=== PATIENT | female | born 1970 | race Caucasian/White ===

== ENCOUNTER 2017-12-31 19:15 | Emergency (ER) | payer BC, OTHER ==
[~2017-12-31] VITALS: Ht 165.1 cm; Wt 83.1 kg
[~2017-12-31 19:15] MED LIST: ACET-1256 PO; CITA20TA9 PO; CNC/54 PO; IBUP-103 PO; PENI-82 PO; PRLSR20 PO
[2017-12-31 19:17] VITALS: TEMP 36.7; Ht 165.1 cm; Wt 83.1 kg
[2017-12-31] MEDS ORDERED: LAMO100T16 PO (20:19)
[2017-12-31] MEDS ORDERED: ATOR10TA82 PO (20:19)
[2017-12-31] MEDS ORDERED: NITR-5 PO (20:19)
[2017-12-31 21:13] LABS: BASO % 0.3 %; BASO ABS # 0.02 K/uL (0-0.2); EOS ABS # 0.13 K/uL (0-0.5); HEMOGLOBIN 11.7 g/dL (12.0-16.0); IG# 0.01 K/uL (0.00-0.02); LYMPH % 33.1 %; LYMPH ABS # 2.18 K/uL (1.2-3.4); MEAN CELL VOLUME 78.9 fL (80-100); MEAN CORPUSCULAR HEMOGLOBIN 24.9 pg (25-34); MEAN CORPUSCULAR HGB CONC 31.6 g/dl (32-36); MEAN PLATELET VOLUME 9.4 fL (7.4-10.4); MONO % 5.5 %; MONO ABS # 0.36 K/uL (0.11-0.59); NEUT % 58.9 %; NEUT ABS # 3.88 K/uL (1.4-6.5); PLATELET COUNT 334 K/uL (130-400); RED CELL DISTRIBUTION WIDTH CV 14.9 % (11.5-14.5); RED CELL DISTRIBUTION WIDTH SD 42.8 fL (36.4-46.3); WHITE BLOOD COUNT 6.58 K/uL (4.8-10.8)
[2017-12-31 21:29] LABS: ALBUMIN 4.1 gm/dl (3.4-5.0); CALCIUM 8.9 mg/dl (8.5-10.1); CREATININE 0.77 mg/dl (0.60-1.20); POTASSIUM 3.3 mmol/L (3.5-5.1)
[2017-12-31 21:31] LABS: TOTAL PROTEIN 7.9 gm/dl (6.4-8.2)
--- NOTE | 2017-12-31 21:57 | DIAGNOSTIC IMAGING REPORT ---
ULTRASOUND OF THE PELVIS CLINICAL HISTORY: Pelvic pain. COMPARISON STUDY: No priors. TECHNIQUE: Real-time, grayscale, and color flow sonography of the pelvis is performed both transabdominally and endovaginally. Images are reviewed in the transverse and longitudinal planes. FINDINGS: Uterus: The uterus is normal in size and echotexture, measuring 1.0 x 4.5 x 6.7 cm. Small intramural fibroids measure up to 2.1 cm. A nabothian cyst is incidentally noted in the cervix. Endometrium: The endometrium is normal in appearance, and the endometrial stripe is normal in thickness measuring up to 0.4 cm. An intrauterine device is in place. Ovaries: The ovaries are normal in size and morphology. The right ovary measures 3.1 x 1.7 x 2.3 cm and the left ovary measures 3.1 x 1.9 x 1.9 cm. There are small bilateral ovarian follicles. A minimally complex follicle in the right ovary measures up to 1.1 cm. Normal Doppler waveforms are shown within both ovaries. Pelvis: There is trace free fluid in the cul-de-sac. No concerning adnexal lesion is seen. IMPRESSION: 1. No acute sonographic abnormality is identified in the pelvis. 2. An intrauterine device is in place. 3. Small uterine fibroids are noted. 4. Trace free fluid in the cul-de-sac is nonspecific and likely physiologic. Electronically signed by: Stew Verduzco M.D. 12/31/2017 9:55 PM Dictated Date/Time: 12/31/2017 9:53 PM
--- NOTE | 2017-12-31 22:50 | DIAGNOSTIC IMAGING REPORT ---
ULTRASOUND KIDNEYS AND BLADDER CLINICAL HISTORY: Pelvic pain. Recent urinary tract infection. COMPARISON STUDY: No priors. TECHNIQUE: Real-time, grayscale, and color flow sonography of the kidneys and bladder is performed. Images are reviewed in the transverse and longitudinal planes. FINDINGS: Kidneys: The kidneys are normal in size and echotexture. The right kidney measures 11.6 x 4.5 x 5.7 cm and the left kidney measures 12.1 x 4.8 x 5.3 cm. There is no hydronephrosis. No shadowing renal calculi are identified. There is no sonographic evidence of contour deforming renal mass lesion. No perinephric fluid is identified. Bladder: The bladder is largely decompressed and grossly normal in appearance. Only the right ureteral jet was seen. IMPRESSION: Unremarkable sonographic assessment of the kidneys and bladder. Electronically signed by: Stew Verduzco M.D. 12/31/2017 10:49 PM Dictated Date/Time: 12/31/2017 9:56 PM
[2017-12-31] MEDS ORDERED: CEFTRIAXONE SOD INJ 1 GM ADDVIAL IV STA (23:03)
--- NOTE | 2017-12-31 23:23 | EMERGENCY ROOM VISIT NOTE ---
History Report prepared by Mena: Karen Rodriguez Under the Supervision of: Dr. Jacqui May D.O. First contact with patient: 19:21 Chief Complaint: PELVIC PAIN Stated Complaint: URINARY TRACT PAIN History of Present Illness The patient is a 47 year old female who presents to the Emergency Room with complaints of persistent pelvic pain starting over 1 week ago. The pain is worse on the left. She describes the pain as sharp. The pain started several days after her period ended which she felt was unusual. 4 days ago, she started feeling pressure and pain with urination. She went to [employer] and had a urine dip which found that she had a UTI. She was started on Macrobid and Pyridium. She got a call today saying that the urine culture was negative. She called her PCP because she was concerned that she was still having urinary symptoms. She is constantly feeling as though she needs to urinate. She feels a little bloated. She thinks that she might have had a fever 3 days ago because she woke up chilled and diaphoretic. She has had some nausea which she attributes to the medications. She denies any back pain, change in bowel movement, or pain with intercourse. No recent change in her menstrual cycles were periods that are heavier than usual. No bleeding between cycles, no abnormal vaginal discharge. She is not prone to UTI. She has a prolapsed uterus. She had an ultrasound several years ago after she had pain around her left ovary which did not reveal any major problems. Source of History: patient Onset: over 1 week ago Position: pelvis Quality: sharp Timing: other (persistent) Associated Symptoms: + fevers (resolved), + chills (resolved), + diaphoresis (resolved), + nausea, + abdominal pain, + urinary symptoms, No back pain Review of Systems See HPI for pertinent positives & negatives. A total of 10 systems reviewed and were otherwise negative. Past Medical & Surgical Surgical Problems: (1) Perforation of root canal space Family History Diabetes mellitus FHx: cancer Heart disease Hypertension Social History Smoking Status: Former Smoker Alcohol Use: occasionally Drug Use: none Marital Status: Housing Status: lives with family Occupation Status: employed Current/Historical Medications Scheduled Atorvastatin (Lipitor), 10 MG PO DAILY Cephalexin (Keflex), 1 CAP PO BID Citalopram Hydrobromide (Celexa), 20 MG PO QAM Lamotrigine (Lamictal), 50 MG PO HS Methylphenidate Hcl (Concerta), 54 MG PO DAILY Nitrofurantoin Monohyd Macrocr (Macrobid), 100 MG PO BID Omeprazole (Prilosec), 20 MG PO BID Allergies Coded Allergies: Sulfa Drugs (Verified Allergy, Intermediate, 03/20/16) Physical Exam Vital Signs Date Time Temp Pulse Resp B/P (MAP) Pulse Ox O2 Delivery O2 Flow Rate FiO2 01/01/18 00:02 76 18 124/71 98 12/31/17 22:05 66 16 119/69 95 Room Air 12/31/17 20:40 72 18 136/47 97 Room Air 12/31/17 19:17 36.7 87 16 133/76 96 Room Air Physical Exam GENERAL: alert, well appearing, well nourished, no distress, non-toxic EYE EXAM: normal conjunctiva, PERRL and EOM's grossly intact OROPHARYNX: no exudate, no erythema, lips, buccal mucosa, and tongue normal and mucous membranes are moist NECK: supple, no nuchal rigidity, no adenopathy, non-tender LUNGS: Clear to auscultation. Normal chest wall mechanics HEART: no murmurs, S1 normal and S2 normal ABDOMEN: abdomen soft, mild tenderness in the suprapubic and bilateral lower quadrants, normo-active bowel sounds, no masses, no rebound or guarding. BACK: Back is symmetrical on inspection and there is no deformity, no midline tenderness, no CVA tenderness. SKIN: no rashes and no bruising UPPER EXTREMITIES: upper extremities are grossly normal. LOWER EXTREMITIES: No pitting edema. NEURO EXAM: Normal sensorium, cranial nerves II-XII grossly intact, normal speech, no gross weakness of arms, no gross weakness of legs. Medical Decision & Procedures ER Provider Diagnostic Interpretation: Radiology results have been interpreted by the radiologist and reviewed by me. ULTRASOUND KIDNEYS AND BLADDER CLINICAL HISTORY: Pelvic pain. Recent urinary tract infection. COMPARISON STUDY: No priors. TECHNIQUE: Real-time, grayscale, and color flow sonography of the kidneys and bladder is performed. Images are reviewed in the transverse and longitudinal planes. FINDINGS: Kidneys: The kidneys are normal in size and echotexture. The right kidney measures 11.6 x 4.5 x 5.7 cm and the left kidney measures 12.1 x 4.8 x 5.3 cm. There is no hydronephrosis. No shadowing renal calculi are identified. There is no sonographic evidence of contour deforming renal mass lesion. No perinephric fluid is identified. Bladder: The bladder is largely decompressed and grossly normal in appearance. Only the right ureteral jet was seen. IMPRESSION: Unremarkable sonographic assessment of the kidneys and bladder. Electronically signed by: Stew Verduzco M.D. 12/31/2017 10:49 PM Dictated Date/Time: 12/31/2017 9:56 PM ULTRASOUND OF THE PELVIS CLINICAL HISTORY: Pelvic pain. COMPARISON STUDY: No priors. TECHNIQUE: Real-time, grayscale, and color flow sonography of the pelvis is performed both transabdominally and endovaginally. Images are reviewed in the transverse and longitudinal planes. FINDINGS: Uterus: The uterus is normal in size and echotexture, measuring 1.0 x 4.5 x 6.7 cm. Small intramural fibroids measure up to 2.1 cm. A nabothian cyst is incidentally noted in the cervix. Endometrium: The endometrium is normal in appearance, and the endometrial stripe is normal in thickness measuring up to 0.4 cm. An intrauterine device is in place. Ovaries: The ovaries are normal in size and morphology. The right ovary measures 3.1 x 1.7 x 2.3 cm and the left ovary measures 3.1 x 1.9 x 1.9 cm. There are small bilateral ovarian follicles. A minimally complex follicle in the right ovary measures up to 1.1 cm. Normal Doppler waveforms are shown within both ovaries. Pelvis: There is trace free fluid in the cul-de-sac. No concerning adnexal lesion is seen. IMPRESSION: 1. No acute sonographic abnormality is identified in the pelvis. 2. An intrauterine device is in place. 3. Small uterine fibroids are noted. 4. Trace free fluid in the cul-de-sac is nonspecific and likely physiologic. Electronically signed by: Stew Verduzco M.D. 12/31/2017 9:55 PM Dictated Date/Time: 12/31/2017 9:53 PM Laboratory Results 12/31/17 20:30 Red Blood Count 4.69, Mean Corpuscular Volume 78.9, Mean Corpuscular Hemoglobin 24.9, Mean Corpuscular Hemoglobin Concent 31.6, Mean Platelet Volume 9.4, Neutrophils (%) (Auto) 58.9, Lymphocytes (%) (Auto) 33.1, Monocytes (%) (Auto) 5.5, Eosinophils (%) (Auto) 2.0, Basophils (%) (Auto) 0.3, Neutrophils # (Auto) 3.88, Lymphocytes # (Auto) 2.18, Monocytes # (Auto) 0.36, Eosinophils # (Auto) 0.13, Basophils # (Auto) 0.02 12/31/17 20:30 Test 12/31/17 20:30 12/31/17 20:38 White Blood Count 6.58 K/uL (4.8-10.8) Red Blood Count 4.69 M/uL (4.2-5.4) Hemoglobin 11.7 g/dL (12.0-16.0) Hematocrit 37.0 % (37-47) Mean Corpuscular Volume 78.9 fL (80-100) Mean Corpuscular Hemoglobin 24.9 pg (25-34) Mean Corpuscular Hemoglobin Concent 31.6 g/dl (32-36) Platelet Count 334 K/uL (130-400) Mean Platelet Volume 9.4 fL (7.4-10.4) Neutrophils (%) (Auto) 58.9 % Lymphocytes (%) (Auto) 33.1 % Monocytes (%) (Auto) 5.5 % Eosinophils (%) (Auto) 2.0 % Basophils (%) (Auto) 0.3 % Neutrophils # (Auto) 3.88 K/uL (1.4-6.5) Lymphocytes # (Auto) 2.18 K/uL (1.2-3.4) Monocytes # (Auto) 0.36 K/uL (0.11-0.59) Eosinophils # (Auto) 0.13 K/uL (0-0.5) Basophils # (Auto) 0.02 K/uL (0-0.2) RDW Standard Deviation 42.8 fL (36.4-46.3) RDW Coefficient of Variation 14.9 % (11.5-14.5) Immature Granulocyte % (Auto) 0.2 % Immature Granulocyte # (Auto) 0.01 K/uL (0.00-0.02) Anion Gap 4.0 mmol/L (3-11) Est Creatinine Clear Calc Drug Dose 95.1 ml/min Estimated GFR () 105.8 Estimated GFR (Non- 91.3 BUN/Creatinine Ratio 13.3 (10-20) Calcium Level 8.9 mg/dl (8.5-10.1) Total Bilirubin 0.2 mg/dl (0.2-1) Aspartate Amino Transf (AST/SGOT) 22 U/L (15-37) Alanine Aminotransferase (ALT/SGPT) 30 U/L (12-78) Alkaline Phosphatase 67 U/L (45-117) Total Protein 7.9 gm/dl (6.4-8.2) Albumin 4.1 gm/dl (3.4-5.0) Globulin 3.8 gm/dl (2.5-4.0) Albumin/Globulin Ratio 1.1 (0.9-2) Lipase 230 U/L (73-393) Human Chorionic Gonadotropin, Qual NEG (NEG) Urine Color YELLOW Urine Appearance CLEAR (CLEAR) Urine pH 5.5 (4.5-7.5) Urine Specific [place] 1.015 (1.000-1.030) Urine Protein NEG (NEG) Urine Glucose (UA) NEG (NEG) Urine Ketones NEG (NEG) Urine Occult Blood 1+ (NEG) Urine Nitrite NEG (NEG) Urine Bilirubin NEG (NEG) Urine Urobilinogen NEG (NEG) Urine Leukocyte Esterase TRACE (NEG) Urine WBC (Auto) 1-5 /hpf (0-5) Urine RBC (Auto) 0-4 /hpf (0-4) Urine Hyaline Casts (Auto) 1-5 /lpf (0-5) Urine Epithelial Cells (Auto) 20-30 /lpf (0-5) Urine Bacteria (Auto) NEG (NEG) Laboratory results per my review. Medications Administered Medications (Trade) Dose Ordered Sig/Blossom Route Start Time Stop Time Status Last Admin Dose Admin Ceftriaxone Sodium (Rocephin Inj) 1 gm NOW STAT IV 12/31/17 23:03 12/31/17 23:04 DC 12/31/17 23:03 1 GM ED Course 1921: The patient was evaluated in room B6. A complete history and physical exam was performed. 2302: Rocephin Inj 1 gm IV. 2251: Upon reevaluation, the patient is feeling better. I discussed the findings and the treatment plan with the patient. She verbalizes agreement and understanding. She was discharged home. Medical Decision Differential diagnoses includes but is not limited to appendicitis, diverticulitis, small bowel obstruction, malignancy, hernia, urinary tract infection, torsion, and ectopic , perforation, trauma, infectious. Patient well-appearing here throughout. No GI symptoms to strongly suggest other acute GI pathology such as colitis or diverticulitis. Discussed with patient following reassuring ultrasounds labs, and urine regarding possible GI etiology and discussed performing CAT scan. Using shared medical decision making, patient opted to decline CAT scan at this time and follow-up as an outpatient. Given patient's persistent urinary symptoms and continued blood and leukocytes noted on UA today, discussed using alternative antibiotic. Discussed close follow-up with [employer] to reevaluate for symptoms possibly related to prolapsed uterus. Discussed symptoms to watch and return for, diet and hydration, precautions and ADRs of the antibiotic, precautions regarding activity and intercourse, she verbalized understanding was agreeable with plan. I have a low suspicion for PID, TOA, torsion, ectopic, dislodged IUD, diverticulitis, perforation, colitis, kidney stone, mesenteric ischemia, AAA, dissection, appendicitis. Patient well-appearing at time of discharge, comfortable with plan, all questions answered at bedside. Medication Reconcilliation Current Medication List: was personally reviewed by me Blood Pressure Screening Patient's blood pressure: Normal blood pressure Blood pressure disposition: Did not require urgent referral Impression Primary Impression: Pelvic pain Additional Impression: Dysuria Scribe Attestation The scribe's documentation has been prepared under my direction and personally reviewed by me in its entirety. I confirm that the note above accurately reflects all work, treatment, procedures, and medical decision making performed by me. Departure Information Dispostion Home / Self-Care Prescriptions Cephalexin (KEFLEX) 500 Mg Cap 1 CAP PO BID for 7 Days, #14 CAP Prov: Jacqui May, DO 12/31/17 Referrals Brady Cervantes DJenaeOJenae (PCP) Patient Instructions [facility] Additional Instructions Please stop taking the Macrobid. Please start the new antibiotic. Please drink plenty of water. Please follow-up with industrial servicer. Please continue to monitor symptoms for any changes. If you develop worsening pain, develop diarrhea, fevers or chills, vomiting, abnormal vaginal discharge or bleeding, or you have any other new concerns, please return the emergency room. Problem Qualifiers
[2017-12-31] MEDS ORDERED: CEPH-571 PO (23:24)
[2018-01-01 00:02] VITALS: BP 124/71; PULSE 76; O2SAT 98
== END 2018-01-01 00:03 | disposition home or self-care (01) ==
LOC: C.EDB 19:16
DX: R10.2 Pelvic and perineal pain (principal); R30.0 Dysuria; D25.9 Leiomyoma of uterus, unspecified; Z97.5 Presence of (intrauterine) contraceptive device; Z79.891 Long term (current) use of opiate analgesic